=== PATIENT | female | born 1990 | race American Indian/Alaskan Native ===

== ENCOUNTER 2019-04-28 09:24 | Emergency (ER) | payer MEDICAID ==
[2019-04-28 09:39] VITALS: BP 107/62
--- NOTE | 2019-04-28 10:20 | Emergency Department Report ---
ED General Adult HPI - General Chief complaint: Upper Respiratory Infection Stated complaint: SINUS INFECTION Time Seen by Provider: 04/28/19 09:59 Source: patient Mode of arrival: Ambulatory Limitations: No Limitations - History of Present Illness Initial comments: Patient is a 28-year-old [place] female who has had mid facial pain and foul odor to her nasal drainage for the past week. Patient's also had a mild cough. Patient was diagnosed with acute sinusitis week ago however her paper prescription was destroyed. Patient is returned because her symptoms have worsened. She was hoping that she would've gotten better without the prescri ption however she did not. Patient states the pain is 7 out of 10 in severity and feels like a pressure in the mid face. She has a greenish yellow - Related Data Previous Rx's Medication Instructions Recorded Last Taken Type Amoxicillin/Potassium Clav 1 each PO BID #14 tablet 04/28/19 Unknown Rx [Augmentin 875-125 Tablet] Fluticasone [Flonase] 1 spray NS QDAY #1 bottle 04/28/19 Unknown Rx predniSONE [Deltasone] 20 mg PO QDAY #5 tab 04/28/19 Unknown Rx traMADol [Ultram] 50 mg PO Q6HR PRN #12 tablet 04/28/19 Unknown Rx Allergies Allergy/AdvReac Type Severity Reaction Status Date / Time No Known Allergies Allergy Unverified 04/28/19 09:36 ED Review of Systems ROS: Stated complaint: SINUS INFECTION Other details as noted in HPI Comment: All other systems reviewed and negative ED Past Medical Hx - Past Medical History Previous Medical History?: No - Surgical History Past Surgical History?: No - Social History Smoking Status: Current Some Day Smoker Substance Use Type: None - Medications Home Medications: Home Medications Medication Instructions Recorded Confirmed Last Taken Type Amoxicillin/Potassium Clav 1 each PO BID #14 tablet 04/28/19 Unknown Rx [Augmentin 875-125 Tablet] Fluticasone [Flonase] 1 spray NS QDAY #1 bottle 04/28/19 Unknown Rx predniSONE [Deltasone] 20 mg PO QDAY #5 tab 04/28/19 Unknown Rx traMADol [Ultram] 50 mg PO Q6HR PRN #12 tablet 04/28/19 Unknown Rx ED Physical Exam - General Limitations: No Limitations General appearance: alert, in no apparent distress - Head Head exam: Present: atraumatic, normocephalic - Expanded Head Exam Expanded 1 - tenderness on palpation - Eye Eye exam: Present: normal appearance, PERRL, EOMI - ENT ENT exam: Present: mucous membranes moist - Neck Neck exam: Present: normal inspection - Respiratory Respiratory exam: Present: normal lung sounds bilaterally. Absent: respiratory distress, wheezes, rales, rhonchi - Cardiovascular Cardiovascular Exam: Present: regular rate, normal rhythm. Absent: systolic murmur, diastolic murmur, rubs, gallop - GI/Abdominal GI/Abdominal exam: Present: soft, normal bowel sounds - Extremities Exam Extremities exam: Present: normal inspection - Back Exam Back exam: Present: normal inspection - Neurological Exam Neurological exam: Present: alert, oriented X3 - Psychiatric Psychiatric exam: Present: normal affect, normal mood - Skin Skin exam: Present: warm, dry, intact, normal color. Absent: rash ED Course Vital Signs 04/28/19 09:36 Temperature 97.9 F Pulse Rate 69 Respiratory 16 Rate Blood Pressure 107/62 ED Medical Decision Making - Medical Decision Making Patient to have a refill of her prescription. Patient states she was not given any medications for symptomatic relief and these will be supplied as well. Patient discharged. Critical care attestation.: If time is entered above; I have spent that time in minutes in the direct care of this critically ill patient, excluding procedure time. ED Disposition Clinical Impression: Acute bacterial sinusitis Disposition: TO HOME OR SELFCARE Is pt being admited?: No Does the pt Need Aspirin: No Condition: Stable Instructions: Acute Bacterial Rhinosinusitis (ED) Referrals: ATUL DOBSON MD [Primary Care Provider] - 3-5 Days Time of Disposition: 10:22
== END 2019-04-28 10:30 | disposition home or self-care (01) ==
LOC: ED 09:24
DX: J01.90 Acute sinusitis, unspecified (principal); B96.89 Other specified bacterial agents as the cause of diseases classified elsewhere; F17.200 Nicotine dependence, unspecified, uncomplicated; Z79.899 Other long term (current) drug therapy
CPT/HCPCS: 99282

== ENCOUNTER 2019-05-24 12:12 | Emergency (ER) | payer MEDICAID ==
[2019-05-24 12:17] VITALS: BP 116/62
--- NOTE | 2019-05-24 12:21 | Emergency Department Report ---
ED ENT HPI - General Chief complaint: Headache Stated complaint: SINUS INFECTION/ORDOR FROM NOSE Time Seen by Provider: 05/24/19 12:16 Source: patient Mode of arrival: Ambulatory Limitations: No Limitations - History of Present Illness Initial comments: 28 y/o female comes in for sinus issues. Having intermittent nasal congestion and rhinorrhea for 2 weeks. FARRAR located frontal. Onset/Timin -: week(s) - Related Data Previous Rx's Medication Instructions Recorded Last Taken Type Amoxicillin/Potassium Clav 1 each PO BID #14 tablet 04/28/19 Unknown Rx [Augmentin 875-125 Tablet] predniSONE [Deltasone] 20 mg PO QDAY #5 tab 04/28/19 Unknown Rx traMADol [Ultram] 50 mg PO Q6HR PRN #12 tablet 04/28/19 Unknown Rx Cetirizine HCl [Zyrtec 10mg tab] 10 mg PO QDAY #30 tablet 05/24/19 Unknown Rx Fluticasone [Flonase] 1 spray NS QDAY #1 bottle 05/24/19 Unknown Rx Ibuprofen [Motrin 600 MG tab] 600 mg PO Q8H PRN #30 tablet 05/24/19 Unknown Rx cephALEXin [Keflex] 500 mg PO Q12HR #20 cap 05/24/19 Unknown Rx Allergies Allergy/AdvReac Type Severity Reaction Status Date / Time No Known Allergies Allergy Unverified 04/28/19 09:36 ED Dental HPI - General Chief complaint: Headache Stated complaint: SINUS INFECTION/ORDOR FROM NOSE Time Seen by Provider: 05/24/19 12:16 Source: patient Mode of arrival: Ambulatory Limitations: No Limitations - Related Data Previous Rx's Medication Instructions Recorded Last Taken Type Amoxicillin/Potassium Clav 1 each PO BID #14 tablet 04/28/19 Unknown Rx [Augmentin 875-125 Tablet] predniSONE [Deltasone] 20 mg PO QDAY #5 tab 04/28/19 Unknown Rx traMADol [Ultram] 50 mg PO Q6HR PRN #12 tablet 04/28/19 Unknown Rx Cetirizine HCl [Zyrtec 10mg tab] 10 mg PO QDAY #30 tablet 05/24/19 Unknown Rx Fluticasone [Flonase] 1 spray NS QDAY #1 bottle 05/24/19 Unknown Rx Ibuprofen [Motrin 600 MG tab] 600 mg PO Q8H PRN #30 tablet 05/24/19 Unknown Rx cephALEXin [Keflex] 500 mg PO Q12HR #20 cap 05/24/19 Unknown Rx Allergies Allergy/AdvReac Type Severity Reaction Status Date / Time No Known Allergies Allergy Unverified 04/28/19 09:36 ED Review of Systems ROS: Stated complaint: SINUS INFECTION/ORDOR FROM NOSE Other details as noted in HPI Comment: All other systems reviewed and negative ED Past Medical Hx - Social History Smoking Status: Current Some Day Smoker Substance Use Type: None - Medications Home Medications: Home Medications Medication Instructions Recorded Confirmed Last Taken Type Amoxicillin/Potassium Clav 1 each PO BID #14 tablet 04/28/19 Unknown Rx [Augmentin 875-125 Tablet] predniSONE [Deltasone] 20 mg PO QDAY #5 tab 04/28/19 Unknown Rx traMADol [Ultram] 50 mg PO Q6HR PRN #12 tablet 04/28/19 Unknown Rx Cetirizine HCl [Zyrtec 10mg tab] 10 mg PO QDAY #30 tablet 05/24/19 Unknown Rx Fluticasone [Flonase] 1 spray NS QDAY #1 bottle 05/24/19 Unknown Rx Ibuprofen [Motrin 600 MG tab] 600 mg PO Q8H PRN #30 tablet 05/24/19 Unknown Rx cephALEXin [Keflex] 500 mg PO Q12HR #20 cap 05/24/19 Unknown Rx ED Physical Exam - General Limitations: No Limitations General appearance: alert, in no apparent distress - Head Head exam: Present: atraumatic, normocephalic - Eye Eye exam: Present: normal appearance - ENT ENT exam: Present: mucous membranes moist - Neck Neck exam: Present: normal inspection - Respiratory Respiratory exam: Present: normal lung sounds bilaterally. Absent: respiratory distress - Cardiovascular Cardiovascular Exam: Present: regular rate, normal rhythm. Absent: systolic murmur, diastolic murmur, rubs, gallop - GI/Abdominal GI/Abdominal exam: Present: soft, normal bowel sounds - Extremities Exam Extremities exam: Present: normal inspection - Back Exam Back exam: Present: normal inspection - Neurological Exam Neurological exam: Present: alert, oriented X3 - Psychiatric Psychiatric exam: Present: normal affect, normal mood - Skin Skin exam: Present: warm, dry, intact, normal color. Absent: rash ED Medical Decision Making - Medical Decision Making 28 y/o female comes in for sinus iss. Dx with sinusitis will be place on keflex and ibuprofen , flonase and zyrtec. Critical care attestation.: If time is entered above; I have spent that time in minutes in the direct care of this critically ill patient, excluding procedure time. ED Disposition Clinical Impression: Sinusitis Qualifiers: Sinusitis location: frontal Chronicity: acute Recurrence: not specified as recurrent Qualified Code(s): J01.10 - Acute frontal sinusitis, unspecified Disposition: TO HOME OR SELFCARE Is pt being admited?: No Does the pt Need Aspirin: No Condition: Stable Instructions: Sinusitis (ED) Additional Instructions: Complete prescriptions as prescribed. Prescriptions: Fluticasone [Flonase] 1 spray NS QDAY #1 bottle cephALEXin [Keflex] 500 mg PO Q12HR #20 cap Ibuprofen [Motrin 600 MG tab] 600 mg PO Q8H PRN #30 tablet PRN Reason: Pain Cetirizine HCl [Zyrtec 10mg tab] 10 mg PO QDAY #30 tablet Referrals: [facility] [Outside] - 3-5 Days
== END 2019-05-24 12:44 | disposition home or self-care (01) ==
LOC: ED 12:12
DX: J01.10 Acute frontal sinusitis, unspecified (principal); F17.200 Nicotine dependence, unspecified, uncomplicated; Z79.1 Long term (current) use of non-steroidal anti-inflammatories (NSAID); Z79.899 Other long term (current) drug therapy
CPT/HCPCS: 99282

== ENCOUNTER 2019-08-09 08:49 | Emergency (ER) | payer MEDICAID ==
--- NOTE | 2019-08-09 09:10 | Emergency Department Report ---
Minor Respiratory - HPI Chief Complaint: Upper Respiratory Infection Stated Complaint: SINUS INFECTION/WITH BAD SMELL Time Seen by Provider: 08/09/19 09:06 Duration: 3-4 weeks Pain Location: Facial Severity: moderate Minor Respiratory: Yes Rhinorrhea, Yes Able to Tolerate Fluids, Yes Cough (slight), No Sore Throat, No Ear Pain, No Sick Contacts, No Hemoptysis, No Chest Pain, No Shortness of Breath, No Fever Other History: worsening sinus congestion w malodorous drainage x 3-4 weeks. tried to see PCP but booked out another 2 weeks. no fever ED Review of Systems ROS: Stated complaint: SINUS INFECTION/WITH BAD SMELL Other details as noted in HPI Comment: All other systems reviewed and negative ENT: as per HPI ED Past Medical Hx - Past Medical History Previous Medical History?: Yes Additional medical history: Vaginal delivery x 3 - Surgical History Past Surgical History?: Yes Additional Surgical History: nasal - Social History Smoking Status: Former Smoker Substance Use Type: Alcohol - Medications Home Medications: Home Medications Medication Instructions Recorded Confirmed Last Taken Type traMADol [Ultram] 50 mg PO Q6HR PRN #12 tablet 04/28/19 Unknown Rx Cetirizine HCl [Zyrtec 10mg tab] 10 mg PO QDAY #30 tablet 05/24/19 Unknown Rx Fluticasone [Flonase] 1 spray NS QDAY #1 bottle 05/24/19 Unknown Rx Ibuprofen [Motrin 600 MG tab] 600 mg PO Q8H PRN #30 tablet 05/24/19 Unknown Rx cephALEXin [Keflex] 500 mg PO Q12HR #20 cap 05/24/19 Unknown Rx Amoxicillin/Potassium Clav 1 each PO BID #20 tablet 08/09/19 Unknown Rx [Augmentin 875-125 Tablet] predniSONE [Deltasone] 40 mg PO QDAY #10 tab 08/09/19 Unknown Rx Minor Respiratory Exam - Exam General: Vital signs noted. No distress. Alert and acting appropriately. HEENT: Yes Moist Mucous Membranes, Yes Maxillary Tenderness, No Pharyngeal Erythema, No Pharyngeal Exudates, No Rhinorrhea, No Conjuctival Injection, No Frontal Tenderness Neck: Yes Supple, No Adenopathy Lungs: Yes Good Air Exchange, No Wheezes, No Ronchi, No Stridor, No Cough, No Labored Respirations, No Use of Accessory Muscles Heart: Yes Regular, No Murmur Skin: No Rash, No Edema Neurologic: Alert and oriented, no deficits. Musculoskeletal: Unremarkable. ED Course Vital Signs 08/09/19 08:53 Temperature 98.4 F Pulse Rate 81 Respiratory 18 Rate Blood Pressure 125/80 O2 Sat by Pulse 100 Oximetry ED Medical Decision Making - Medical Decision Making Pt w symptoms of sinusitis worsening over a few weeks will treat and she will fu pcp - Differential Diagnosis sinusitis, allergic rhinitis Critical care attestation.: If time is entered above; I have spent that time in minutes in the direct care of this critically ill patient, excluding procedure time. ED Disposition Clinical Impression: Acute bacterial sinusitis Disposition: DC- TO HOME OR SELFCARE Is pt being admited?: No Condition: Good Instructions: Acute Bacterial Rhinosinusitis (ED) Prescriptions: Amoxicillin/Potassium Clav [Augmentin 875-125 Tablet] 1 each PO BID #20 tablet predniSONE [Deltasone] 40 mg PO QDAY #10 tab Referrals: CINDY HERNANDEZ MD [Staff Physician] - 3-5 Days Time of Disposition: 09:09
[2019-08-09 09:51] VITALS: BP 117/74
== END 2019-08-09 09:51 | disposition home or self-care (01) ==
LOC: ED 08:49
DX: J01.90 Acute sinusitis, unspecified (principal); B96.89 Other specified bacterial agents as the cause of diseases classified elsewhere
CPT/HCPCS: 99282

== ENCOUNTER 2019-08-29 08:31 | Emergency (ER) | payer MEDICAID ==
[2019-08-29 08:49] VITALS: BP 125/60
--- NOTE | 2019-08-29 09:27 | Emergency Department Report ---
ED ENT HPI - General Chief complaint: Dental/Oral Stated complaint: SINUS/LFT SIDE TOOTHACHE/GUM PAIN Time Seen by Provider: 08/29/19 09:15 Source: patient Mode of arrival: Ambulatory Limitations: No Limitations - History of Present Illness Initial comments: 29-year-old -[place] female presents to the emergency room complaining of left sided toothache 3 days in possible sinus infection 3 days. Patient states that she did make an appointment to [facility] but they're not able to see her until next month. Patient reports she has been using Flonase is not helping. Patient admits to intermittent headache and nasal congestion. Patient denies any fever or chills or nausea no vomiting. Patient has no past medical history currently takes no medications on a daily basis and has known drug allergies. MD complaint: tooth pain, other (possible sinus infection.) Onset/Timin -: days(s) Location: tooth # (16) Severity: moderate Severity scale (0 -10): 8 Quality: aching, sharp Consistency: constant Improves with: none Worsens with: none Context-Epistaxis: history of similar Context- Dental: poor dental care - Related Data Previous Rx's Medication Instructions Recorded Last Taken Type traMADol [Ultram] 50 mg PO Q6HR PRN #12 tablet 04/28/19 Unknown Rx Cetirizine HCl [Zyrtec 10mg tab] 10 mg PO QDAY #30 tablet 05/24/19 Unknown Rx cephALEXin [Keflex] 500 mg PO Q12HR #20 cap 05/24/19 Unknown Rx Amoxicillin/Potassium Clav 1 each PO BID #20 tablet 08/09/19 Unknown Rx [Augmentin 875-125 Tablet] predniSONE [Deltasone] 40 mg PO QDAY #10 tab 08/09/19 Unknown Rx Clindamycin [Clindamycin CAP] 600 mg PO BID #20 capsule 08/29/19 Unknown Rx Fluticasone [Flonase] 1 spray NS QDAY #1 bottle 08/29/19 Unknown Rx Ibuprofen [Motrin 600 MG tab] 600 mg PO Q8H PRN #30 tablet 08/29/19 Unknown Rx Allergies Allergy/AdvReac Type Severity Reaction Status Date / Time No Known Allergies Allergy Verified 05/24/19 12:18 ED Dental HPI - General Chief complaint: Dental/Oral Stated complaint: SINUS/LFT SIDE TOOTHACHE/GUM PAIN Time Seen by Provider: 08/29/19 09:15 Source: patient Mode of arrival: Ambulatory Limitations: No Limitations - Related Data Previous Rx's Medication Instructions Recorded Last Taken Type traMADol [Ultram] 50 mg PO Q6HR PRN #12 tablet 04/28/19 Unknown Rx Cetirizine HCl [Zyrtec 10mg tab] 10 mg PO QDAY #30 tablet 05/24/19 Unknown Rx cephALEXin [Keflex] 500 mg PO Q12HR #20 cap 05/24/19 Unknown Rx Amoxicillin/Potassium Clav 1 each PO BID #20 tablet 08/09/19 Unknown Rx [Augmentin 875-125 Tablet] predniSONE [Deltasone] 40 mg PO QDAY #10 tab 08/09/19 Unknown Rx Clindamycin [Clindamycin CAP] 600 mg PO BID #20 capsule 08/29/19 Unknown Rx Fluticasone [Flonase] 1 spray NS QDAY #1 bottle 08/29/19 Unknown Rx Ibuprofen [Motrin 600 MG tab] 600 mg PO Q8H PRN #30 tablet 08/29/19 Unknown Rx Allergies Allergy/AdvReac Type Severity Reaction Status Date / Time No Known Allergies Allergy Verified 05/24/19 12:18 ED Review of Systems ROS: Stated complaint: SINUS/LFT SIDE TOOTHACHE/GUM PAIN Other details as noted in HPI ED Past Medical Hx - Past Medical History Previous Medical History?: Yes Additional medical history: Vaginal delivery x 3 - Surgical History Past Surgical History?: Yes Additional Surgical History: nasal - Social History Smoking Status: Former Smoker Substance Use Type: None - Medications Home Medications: Home Medications Medication Instructions Recorded Confirmed Last Taken Type traMADol [Ultram] 50 mg PO Q6HR PRN #12 tablet 04/28/19 Unknown Rx Cetirizine HCl [Zyrtec 10mg tab] 10 mg PO QDAY #30 tablet 05/24/19 Unknown Rx cephALEXin [Keflex] 500 mg PO Q12HR #20 cap 05/24/19 Unknown Rx Amoxicillin/Potassium Clav 1 each PO BID #20 tablet 08/09/19 Unknown Rx [Augmentin 875-125 Tablet] predniSONE [Deltasone] 40 mg PO QDAY #10 tab 08/09/19 Unknown Rx Clindamycin [Clindamycin CAP] 600 mg PO BID #20 capsule 08/29/19 Unknown Rx Fluticasone [Flonase] 1 spray NS QDAY #1 bottle 08/29/19 Unknown Rx Ibuprofen [Motrin 600 MG tab] 600 mg PO Q8H PRN #30 tablet 08/29/19 Unknown Rx ED Physical Exam - General Limitations: No Limitations ED Course Vital Signs 08/29/19 08:48 Temperature 98.3 F Pulse Rate 67 Respiratory 16 Rate Blood Pressure 125/60 O2 Sat by Pulse 100 Oximetry ED Medical Decision Making - Medical Decision Making 29-year-old -[place] female presents to the emergency room complaining of left sided toothache 3 days in possible sinus infection 3 days. Patient states that she did make an appointment to [facility] but they're not able to see her until next month. Patient reports she has been using Flonase is not helping. Patient admits to intermittent headache and nasal congestion. Patient denies any fever or chills or nausea no vomiting. Patient has no past medical history currently takes no medications on a daily basis and has known drug allergies. Patient will be placed on clindamycin 300 mg twice a day for 10 days. Patient is to continue with the Flonase and she can use Claritin [id number]. He is to follow up with the ear nose and throat provider as well as a dentist for her tooth #16. Critical care attestation.: If time is entered above; I have spent that time in minutes in the direct care of this critically ill patient, excluding procedure time. ED Disposition Clinical Impression: Acute sinus infection, Dental abscess Disposition: TO HOME OR SELFCARE Is pt being admited?: No Does the pt Need Aspirin: No Condition: Stable Instructions: Sinusitis (ED), Dental Abscess (ED) Prescriptions: Clindamycin [Clindamycin CAP] 600 mg PO BID #20 capsule Fluticasone [Flonase] 1 spray NS QDAY #1 bottle Ibuprofen [Motrin 600 MG tab] 600 mg PO Q8H PRN #30 tablet PRN Reason: Pain Referrals: WAYNE GALVAN MD [Staff Physician] - 3-5 Days [facility] [Outside] - 3-5 Days [facility] [Outside] - 3-5 Days Forms: Work/School Release Form(ED)
== END 2019-08-29 10:05 | disposition home or self-care (01) ==
LOC: ED 08:31
DX: J01.90 Acute sinusitis, unspecified (principal); K04.7 Periapical abscess without sinus; Z79.899 Other long term (current) drug therapy; Z87.891 Personal history of nicotine dependence
CPT/HCPCS: 99282

== ENCOUNTER 2019-10-25 09:50 | Emergency (ER) | payer MEDICAID ==
[2019-10-25 09:57] VITALS: BP 137/61
== END 2019-10-25 10:46 | disposition left against medical advice (07) ==
LOC: ED 09:50
DX: K13.79 Other lesions of oral mucosa (principal); Z53.21 Procedure and treatment not carried out due to patient leaving prior to being seen by health care provider

== ENCOUNTER 2019-12-22 10:20 | Emergency (ER) | payer MEDICAID ==
[2019-12-22 10:45] VITALS: BP 121/68
--- NOTE | 2019-12-22 11:18 | Emergency Department Report ---
Chief Complaint: Upper Respiratory Infection Stated Complaint: SINUS INFECTION Time Seen by Provider: 12/22/19 11:15 - HPI History of Present Illness: MS. Briscoe presents with sinus drainage and facial pressure for 3 weeks. Foul odorous drainage from nose. Hx of sinusitis. - Exam Vital Signs: Vital Signs 12/22/19 12/22/19 10:42 10:49 Temperature 98.5 F 98.5 F Pulse Rate 60 61 Respiratory 20 20 Rate Blood Pressure 121/68 121/68 O2 Sat by Pulse 99 99 Oximetry Physical Exam: well appearing normal voice normal gait no respiratory distress MSE screening note: Focused history and physical exam performed. Due to findings the following was ordered: referred to outpatient medicine physician ED Disposition for MSE Clinical Impression: URI (upper respiratory infection) Disposition: MED SCREENING EXAM-LEFT Condition: Stable Referrals: SANDY CHICAS MD [Staff Physician] - [facility]
== END 2019-12-22 11:20 | disposition left against medical advice (07) ==
LOC: ED 10:20
DX: J06.9 Acute upper respiratory infection, unspecified (principal)
CPT/HCPCS: 99281

== ENCOUNTER 2020-08-02 14:40 | Emergency (ER) | payer MEDICAID ==
[2020-08-02 14:51] VITALS: BP 141/86
--- NOTE | 2020-08-02 17:46 | Emergency Department Report ---
- General Chief complaint: Dental/Oral Stated complaint: swollen lips/fever blisters Time Seen by Provider: 08/02/20 17:40 Source: patient Mode of arrival: Ambulatory Limitations: No Limitations - History of Present Illness Initial comments: 30-year-old -[place] female presents to the emergency room complaining of blisters to her lips and swelling x1 week. Patient also complains of nasal congestion sinus pressure. Patient states symptoms started when she worked in a cooler for 1 day. Patient denies any fever chills no nausea no vomiting no shortness of breath. Patient does report a history of fever blisters about 5 years ago. She does admit that she is under stress as she is recently started back school. Patient has no known drug allergies. MD complaint: lesion Onset/Timin -: week(s) Tetanus Up to Date: yes Severity: severe Quality: burning, aching, sharp Consistency: constant Improves with: none Worsens with: none Associated symptoms: other (Headache, nasal congestion, swelling of the lips and blisters to her lip) Treatments Prior to Arrival: OTC topical medication, other (Lywo-upb-rortzom Abreva) - Related Data Previous Rx's Medication Instructions Recorded Last Taken Type traMADoL [Ultram] 50 mg PO Q6HR PRN #12 tablet 04/28/19 Unknown Rx Cetirizine HCl [Zyrtec 10mg tab] 10 mg PO QDAY #30 tablet 05/24/19 Unknown Rx cephALEXin [Keflex] 500 mg PO Q12HR #20 cap 05/24/19 Unknown Rx Amoxicillin/Potassium Clav 1 each PO BID #20 tablet 08/09/19 Unknown Rx [Augmentin 875-125 Tablet] predniSONE [Deltasone] 40 mg PO QDAY #10 tab 08/09/19 Unknown Rx Clindamycin [Clindamycin CAP] 600 mg PO BID #20 capsule 08/29/19 Unknown Rx Fluticasone [Flonase] 1 spray NS QDAY #1 bottle 08/29/19 Unknown Rx Ibuprofen [Motrin 600 MG tab] 600 mg PO Q8H PRN #30 tablet 08/29/19 Unknown Rx Clindamycin [Clindamycin CAP] 300 mg PO Q8H #15 cap 06/03/20 Unknown Rx Ibuprofen [Motrin 800 MG tab] 800 mg PO Q8HR PRN #30 tablet 06/03/20 Unknown Rx Acyclovir 400 mg PO TID 10 Days #30 tablet 08/02/20 Unknown Rx cephALEXin [Keflex] 500 mg PO Q12HR 7 Days #14 cap 08/02/20 Unknown Rx Allergies Allergy/AdvReac Type Severity Reaction Status Date / Time No Known Allergies Allergy Verified 06/03/20 09:06 Abscess Boil HPI - HPI Chief Complaint: Dental/Oral Stated Complaint: swollen lips/fever blisters Time Seen by Provider: 08/02/20 17:40 Home Medications: Previous Rx's Medication Instructions Recorded Last Taken Type traMADoL [Ultram] 50 mg PO Q6HR PRN #12 tablet 04/28/19 Unknown Rx Cetirizine HCl [Zyrtec 10mg tab] 10 mg PO QDAY #30 tablet 05/24/19 Unknown Rx cephALEXin [Keflex] 500 mg PO Q12HR #20 cap 05/24/19 Unknown Rx Amoxicillin/Potassium Clav 1 each PO BID #20 tablet 08/09/19 Unknown Rx [Augmentin 875-125 Tablet] predniSONE [Deltasone] 40 mg PO QDAY #10 tab 08/09/19 Unknown Rx Clindamycin [Clindamycin CAP] 600 mg PO BID #20 capsule 08/29/19 Unknown Rx Fluticasone [Flonase] 1 spray NS QDAY #1 bottle 08/29/19 Unknown Rx Ibuprofen [Motrin 600 MG tab] 600 mg PO Q8H PRN #30 tablet 08/29/19 Unknown Rx Clindamycin [Clindamycin CAP] 300 mg PO Q8H #15 cap 06/03/20 Unknown Rx Ibuprofen [Motrin 800 MG tab] 800 mg PO Q8HR PRN #30 tablet 06/03/20 Unknown Rx Acyclovir 400 mg PO TID 10 Days #30 tablet 08/02/20 Unknown Rx cephALEXin [Keflex] 500 mg PO Q12HR 7 Days #14 cap 08/02/20 Unknown Rx Allergies/Adverse Reactions: Allergies Allergy/AdvReac Type Severity Reaction Status Date / Time No Known Allergies Allergy Verified 06/03/20 09:06 ED Review of Systems ROS: Stated complaint: swollen lips/fever blisters Other details as noted in HPI Comment: All other systems reviewed and negative ED Past Medical Hx - Past Medical History Previous Medical History?: No Additional medical history: Vaginal delivery x 3 - Surgical History Past Surgical History?: Yes Additional Surgical History: nasal surgery - Social History Smoking Status: Current Every Day Smoker - Medications Home Medications: Home Medications Medication Instructions Recorded Confirmed Last Taken Type traMADoL [Ultram] 50 mg PO Q6HR PRN #12 tablet 04/28/19 Unknown Rx Cetirizine HCl [Zyrtec 10mg tab] 10 mg PO QDAY #30 tablet 05/24/19 Unknown Rx cephALEXin [Keflex] 500 mg PO Q12HR #20 cap 05/24/19 Unknown Rx Amoxicillin/Potassium Clav 1 each PO BID #20 tablet 08/09/19 Unknown Rx [Augmentin 875-125 Tablet] predniSONE [Deltasone] 40 mg PO QDAY #10 tab 08/09/19 Unknown Rx Clindamycin [Clindamycin CAP] 600 mg PO BID #20 capsule 08/29/19 Unknown Rx Fluticasone [Flonase] 1 spray NS QDAY #1 bottle 08/29/19 Unknown Rx Ibuprofen [Motrin 600 MG tab] 600 mg PO Q8H PRN #30 tablet 08/29/19 Unknown Rx Clindamycin [Clindamycin CAP] 300 mg PO Q8H #15 cap 06/03/20 Unknown Rx Ibuprofen [Motrin 800 MG tab] 800 mg PO Q8HR PRN #30 tablet 06/03/20 Unknown Rx Acyclovir 400 mg PO TID 10 Days #30 tablet 08/02/20 Unknown Rx cephALEXin [Keflex] 500 mg PO Q12HR 7 Days #14 cap 08/02/20 Unknown Rx ED Physical Exam - General Limitations: No Limitations General appearance: alert, in no apparent distress - Head Head exam: Present: atraumatic, normocephalic - Expanded Head Exam Expanded Head exam: Present: general tenderness (Maxillary and frontal sinuses) - Eye Eye exam: Present: PERRL, EOMI, other (Eyes are sunken and darken) - ENT ENT exam: Present: mucous membranes moist, other (Upper and lower lip swelling with blisters) - Neck Neck exam: Present: normal inspection, full ROM - Cardiovascular Cardiovascular Exam: Present: regular rate, normal rhythm. Absent: systolic murmur, diastolic murmur, rubs, gallop - GI/Abdominal GI/Abdominal exam: Present: soft, normal bowel sounds - Back Exam Back exam: Present: normal inspection - Neurological Exam Neurological exam: Present: alert, oriented X3 - Psychiatric Psychiatric exam: Present: normal affect, normal mood - Skin Skin exam: Present: vesicles (Upper and lower lip swelling) ED Course Vital Signs 08/02/20 14:50 Temperature 98.9 F Pulse Rate 102 H Respiratory 20 Rate Blood Pressure 141/86 O2 Sat by Pulse 99 Oximetry ED Medical Decision Making - Medical Decision Making 30-year-old -[place] female presents to the emergency room complaining of blisters to her lips and swelling x1 week. Patient also complains of nasal congestion sinus pressure. Patient states symptoms started when she worked in a cooler for 1 day. Patient denies any fever chills no nausea no vomiting no shortness of breath. Patient does report a history of fever blisters about 5 years ago. She does admit that she is under stress as she is recently started back school. Patient has no known drug allergies. 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 Critical care attestation.: If time is entered above; I have spent that time in minutes in the direct care of this critically ill patient, excluding procedure time. ED Disposition Clinical Impression: Fever blister, Sinusitis nasal Disposition: DC-01 TO HOME OR SELFCARE Is pt being admited?: No Does the pt Need Aspirin: No Condition: Stable Instructions: Oral Herpes Simplex Virus Infections (ED), Sinusitis (ED) Additional Instructions: Complete medications as prescribed. Tylenol or ibuprofen as needed for pain management. Follow-up with your primary care provider or brick chimney [facility]. Prescriptions: Acyclovir 400 mg PO TID 10 Days #30 tablet cephALEXin [Keflex] 500 mg PO Q12HR 7 Days #14 cap Referrals: [facility] [Provider Group] - 3-5 Days [facility] [Provider Group] - 3-5 Days Forms: Work/School Release Form(ED)
== END 2020-08-02 18:12 | disposition home or self-care (01) ==
LOC: ED 14:40
DX: J01.80 Other acute sinusitis (principal); F17.200 Nicotine dependence, unspecified, uncomplicated; Z98.890 Other specified postprocedural states; Z79.899 Other long term (current) drug therapy
CPT/HCPCS: 99281